=== PATIENT | male | born 1945 | race Caucasian/White ===

== ENCOUNTER 2017-10-03 08:06 | Outpatient (RCR) | payer MEDICARE | END 2017-10-18 | LOC: M CR 08:06 | DX: Z98.61 Coronary angioplasty status (principal) | CPT/HCPCS: 93798 ==

== ENCOUNTER 2017-10-19 09:09 | Outpatient (RCR) | payer MEDICARE | END 2017-11-18 | LOC: M CR 09:09 | DX: Z98.61 Coronary angioplasty status (principal) | CPT/HCPCS: 93798 ==

== ENCOUNTER 2017-11-23 08:47 | Outpatient (RCR) | payer MEDICARE | END 2017-12-18 | LOC: M CR 08:47 | DX: Z51.89 Encounter for other specified aftercare (principal); Z98.61 Coronary angioplasty status | CPT/HCPCS: 93798 ==